=== PATIENT | male | born 1985 | race Caucasian/White ===

== ENCOUNTER 2022-07-07 18:47 | Emergency (ER) | payer OTHER ==
[2022-07-07 19:17] LABS: BASOPHILS # (AUTO) 0.1 10^3/uL (0.0-0.1); BASOPHILS % (AUTO) 0.6 %; EOSINOPHILS # (AUTO) 0.2 10^3/uL (0.0-0.7); EOSINOPHILS % (AUTO) 1.7 %; HCT - HEMATOCRIT 48.5 % (42.0-52.0); HGB - HEMOGLOBIN 15.6 g/dL (14.0-18.0); LYMPHOCYTES # (AUTO) 2.5 10^3/uL (1.5-3.5); LYMPHOCYTES % (AUTO) 26.3 %; MEAN CORPUSCULAR HEMOGLOBIN 27.9 pg (27.0-31.0); MEAN CORPUSCULAR HGB CONC 32.2 g/dL (32.0-36.0); MEAN CORPUSCULAR VOLUME 86.6 fL (80.0-94.0); MEAN PLATELET VOLUME 10.1 fL (7.4-11.4); MONOCYTES # (AUTO) 0.7 10^3/uL (0.0-1.0); MONOCYTES % (AUTO) 7.3 %; NEUTROPHILS % (AUTO) 62.9 %; PLT - PLATELET COUNT 297 10^3/uL (130-450); RED CELL DISTRIBUTION WIDTH 12.8 % (12.0-15.0); WHITE BLOOD COUNT 9.6 x10^3/uL (4.8-10.8)
--- NOTE | 2022-07-07 19:20 | ED Physician Documentation ---
PD HPI CHEST PAIN - Stated complaint Stated Complaint: CHEST/BACK PX - Chief complaint Chief Complaint: Cardiac - History obtained from History obtained from: Patient, Family - History of Present Illness Pain level max: 6 Pain level now: 0 - Additional information Additional information: Patient is a 37-year-old male who presents to the emergency department stating that he has had left-sided back pain intermittently for the past 1 week. He states it started last Wednesday. 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 He states he has had 1 to 2 seconds of left-sided chest pain over the past several days as well. He states that the back pain is usually present when he is bending over. Better with rest. He denies any significant shortness of breath to me. No recent travel. No recent surgery. Denies any medications at home. No cardiac history. No nausea or vomiting. He is not having any pain currently. No numbness or tingling in the bilateral upper or lower extremities. No loss of bowel or bladder control. No IV drug use. No fevers. No chills. No recent illness. Review of Systems Constitutional: denies: Fever, Chills GI: denies: Vomiting, Diarrhea : denies: Dysuria, Frequency, Hesitancy, Incontinent Skin: denies: Rash Neurologic: denies: Focal weakness, Numbness PD PAST MEDICAL HISTORY - Past Medical History Past Medical History: No - Past Surgical History Past Surgical History: No - Present Medications Home Medications: Ambulatory Orders Medication Instructions Recorded Confirmed No Known Home Medications 07/07/22 07/07/22 - Allergies Allergies/Adverse Reactions: Allergies Allergy/AdvReac Type Severity Reaction Status Date / Time No Known Drug Allergies Allergy Verified 07/07/22 19:00 - Living Situation Living Situation: reports: With family Living Arrangement: reports: At home - Social History Does the pt have substance abuse?: No - Family History Family history: reports: Non contributory PD ED PE NORMAL - Vitals Vital signs reviewed: Yes - General General: Alert and oriented X 3, No acute distress - HEENT HEENT: PERRL, Moist mucous membranes - Neck Neck: Supple, no meningeal sign, No bony TTP, No JVD, No bruit - Cardiac Cardiac: RRR, No murmur, Strong equal pulses - Respiratory Respiratory: No respiratory distress, Clear bilaterally - Abdomen Abdomen: Normal bowel sounds, Soft, Non tender, Non distended - Back Back: No spinal TTP, Other (No paraspinal tenderness to palpation. Full range of motion of the left shoulder and right shoulder without pain. 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 Normal great toe extension bilaterally. no saddle anesthesia) - Psych Psych: Normal mood, Normal affect Results - Vitals Vitals: Vital Signs - 24 hr 07/07/22 07/07/22 07/07/22 18:51 19:37 20:02 Temperature 36 C L Heart Rate 96 85 70 Respiratory 18 24 17 Rate Blood Pressure 164/106 H 140/95 H 149/97 H O2 Saturation 98 97 98 07/07/22 07/07/22 20:42 21:05 Temperature Heart Rate 77 79 Respiratory 25 H Rate Blood Pressure 140/91 H 138/91 H O2 Saturation 96 98 Oxygen O2 Source Room air - EKG (time done) 1903 Rate: Rate (enter#) (92) Rhythm: NSR New Era: Normal Intervals: Normal ID QRS: Normal Ischemia: Normal ST segments - Labs Labs: Laboratory Tests 07/07/22 07/07/22 07/07/22 19:12 19:12 19:12 WBC 9.6 RBC 5.60 Hgb 15.6 Hct 48.5 MCV 86.6 MCH 27.9 MCHC 32.2 RDW 12.8 Plt Count 297 MPV 10.1 Neut # (Auto) 6.0 Lymph # (Auto) 2.5 [place] # (Auto) 0.7 Eos # (Auto) 0.2 Baso # (Auto) 0.1 Absolute Nucleated RBC 0.00 Nucleated RBC % 0.0 Sodium 141 Potassium 4.1 Chloride 102 Carbon Dioxide 26 Anion Gap 13.0 BUN 17 Creatinine 0.8 Estimated GFR (MDRD) 108 Glucose 91 Calcium 10.1 Total Bilirubin 0.7 AST 41 ALT 79 H Alkaline Phosphatase 57 Troponin I High Sens 3.1 Total Protein 8.7 H Albumin 4.8 Globulin 3.9 Albumin/Globulin Ratio 1.2 Lipase 59 H - Rads (name of study) Chest x-ray Radiology: Final report received, See rad report CT angiogram chest Radiology: Final report received, See rad report PD Medical Decision Making - ED course Complexity details: reviewed results, re-evaluated patient, considered differential (No ST elevation GA, no aortic dissection, no PE, no tension pneumothorax, no aortic aneurysm), d/w patient ED course: Patient with left upper back pain worse with movement and bending over for the past 1 week. No acute findings on CBC. Chemistry does not show any significant abnormalities. High sensitive troponin is negative. CT angiogram chest does n ot show any evidence of aortic dissection or large pulmonary embolism. The chest pain was only for 1 to 2 seconds at a time. Not consistent with acute coronary syndrome. EKG is normal. We will have him continue Motrin and Tylenol as needed for pain. We will have him follow-up with his doctor for further care and to recheck his blood pressure. Patient counseled regarding signs and symptoms for which I believe and urgent re-evaluation would be necessary. Patient with good understanding of and agreement to plan and is comfortable going home at this time This document was made in part using voice recognition software. While efforts are made to proofread this document, sound alike and grammatical errors may occur. No evidence of cauda equina, epidural abscess. Normal neurological exam. Departure - Departure Disposition: 01 Home, Self Care Clinical Impression: Atypical chest pain Back pain Qualifiers: Back pain location: thoracic back pain Chronicity: acute Back pain laterality: left Qualified Code(s): M54.6 - Pain in thoracic spine Condition: Good Instructions: ED Chest Pain Atypical Unkn Cause, ED Neck Back Pain General Follow-Up: Your,doctor in 1 week [Other] Comments: Please follow-up with your doctor for further care. There are no acute findings on your chest x-ray, EKG, laboratory testing or CT angiogram of the chest. I would continue Motrin and Tylenol as needed at home for pain. Continue to gently stretch your back as well. Return if you worsen Discharge Date/Time: 07/07/22 21:23
[2022-07-07 19:35] LABS: ALBUMIN 4.8 g/dL (3.2-5.5); ALBUMIN/GLOBULIN RATIO 1.2 (1.0-2.2); BILIRUBIN,TOTAL 0.7 mg/dL (0.2-1.0); CALCIUM 10.1 mg/dL (8.5-10.3); CREATININE 0.8 mg/dL (0.6-1.2); POTASSIUM 4.1 mmol/L (3.5-5.0); TOTAL PROTEIN 8.7 g/dL (6.7-8.2)
[2022-07-07] MEDS ORDERED: iohexoL-300 100 ML VIAL ONE (20:14)
--- NOTE | 2022-07-07 20:21 | XRAY Report ---
PROCEDURE: Chest 1 View X-Ray INDICATIONS: Chest pain TECHNIQUE: One view of the chest was acquired. COMPARISON: None. FINDINGS: Surgical changes and devices: None. Lungs and pleura: No pleural effusions or pneumothorax. Lungs are clear. Mediastinum: Mediastinal contours appear normal. Heart size is normal. Bones and chest wall: No suspicious bony lesions. Overlying soft tissues appear unremarkable. IMPRESSION: No acute cardiopulmonary abnormality. Reviewed by: James Elmore on 07/07/2022 8:20 PM [facility] Approved by: James Elmore on 07/07/2022 8:20 PM [facility] Station ID: [id number]
[2022-07-07] MEDS ORDERED: iohexoL-300 100 ML VIAL IVP ONE (20:39)
--- NOTE | 2022-07-07 20:52 | CT Report ---
PROCEDURE: ANGIO CHEST W/WO INDICATIONS: L sided chest/back pain CONTRAST: 80mL Omni 300 TECHNIQUE: After the administration of intravenous contrast, 2 mm axial images were acquired from the pulmonary apices to the posterior costophrenic angles during the arterial phase. In addition, 1 mm lung kernel and 5 mm soft tissue kernel reconstructions were performed. 3-dimensional coronal oblique maximum int ensity projection (MIP) reformats, 8 mm axial MIP, and 5 mm coronal and sagittal MPR reformats were t hen performed through the thorax. For radiation dose reduction, the following was used: automated exp osure control, adjustment of mA and/or kV according to patient size. COMPARISON: Concurrent chest x-ray FINDINGS: Image quality: Evaluation limited by patient body habitus. Pulmonary arteries: There is markedly suboptimal opacification of the pulmonary arteries with nondiag nostic evaluation for filling defects beyond the main or lobar pulmonary arteries. Pulmonary arteries are normal in size. Lower Neck: No lymphadenopathy by size criteria. Thyroid: Visualized thyroid demonstrates no discrete nodules. Axillae: No lymphadenopathy by size criteria. Chest Wall: Unremarkable. Bones: Visualized osseous structures demonstrate no suspicious lesions. Lungs and Airways: No acute consolidation. There is mild dependent atelectasis bilaterally. The trac hea and central airways are patent. Pleura: No pneumothorax or pleural effusions. Heart: Heart size is normal. No pericardial effusion. Thoracic Vessels: The thoracic aorta is normal in size. Mediastinum and Claritza: No lymphadenopathy by size criteria. Esophagus: No wall thickening. No hiatal hernia. Abdomen: Visualized upper abdomen demonstrates hypoattenuation of the visualized liver likely reflec ting fatty infiltration. IMPRESSION: 1. Nondiagnostic study for pulmonary embolism due to markedly suboptimal contrast opacification of th e pulmonary arteries. If clinical concern persists, recommend a repeat study when clinically feasible assuming normal renal function. 2. No acute airspace consolidation. Reviewed by: Saul Chavez MD on 07/07/2022 8:51 PM PST Approved by: Saul Chavez MD on 07/07/2022 8:51 PM PST Station ID: [id number]
[2022-07-07 21:06] VITALS: BP 138/91
== END 2022-07-07 21:23 | disposition home or self-care (01) ==
LOC: EDSEX → ED 18:47
DX: R07.89 Other chest pain (principal); M54.6 Pain in thoracic spine
CPT/HCPCS: 36415; 71045; 71275; 80053; 83690; 84484; 85025; 93005; 99283; 99284; Q9967